=== PATIENT | male | born 1990 | race Caucasian/White ===

== ENCOUNTER 2017-11-17 11:39 | Emergency (ER) | payer OTHER ==
[~2017-11-17] VITALS: Ht 180.3 cm; Wt 90.7 kg
[2017-11-17] MEDS ORDERED: TAMIFLU75 MG PO (11:53)
== END 2017-11-17 11:59 | disposition home or self-care (01) ==
LOC: ED 11:39
DX: J11.1 Influenza due to unidentified influenza virus with other respiratory manifestations (principal); Z87.891 Personal history of nicotine dependence
CPT/HCPCS: 99283